=== PATIENT | female | born 1945 | race Two or more races ===

== ENCOUNTER 2020-06-15 22:30 | Inpatient (IN) | payer OTHER, MEDICAID ==
[~2020-06-15] VITALS: Ht 165.1 cm; Wt 122.0 kg
[~2020-06-15 22:30] MED LIST: ALBUAER3 IN; ASCO500T11 PO; B-CO1TAB33 PO; CAR3125T PO; CHOL20007 PO; FLUT250M2 INH; FURO1TAB32 PO; GABA300C10 PO; INSLANTI SC; INSLISPI SC; LEVO150T10 PO; METO5TAB56 PO; NIFE1TAB30 PO; NITR0.4S29 SL; OMEG100078 PO; SIMV-13 PO; SODB50I PO; TRAM50TA2 PO
[2020-06-15] MEDS ORDERED: PIPERACILLIN-TAZOB 3.375GM 100 ML IV ONE (23:00)
[2020-06-15] MEDS ORDERED: VANCOMYCIN 1GM/250ML 250 ML IV ONE (23:00)
[2020-06-15] MEDS ORDERED: SODIUM CHLORIDE 0.9% 1,000 ML IV ONE (23:00)
[2020-06-15 23:09] LABS: Basophils # (auto) 0.1 10 ^3/uL (0-0.2); Eosinophils # (auto) 0 10 ^3/uL (0-0.8); Hemoglobin 9.2 g/dL (12.2-16.2); Lymphocytes # (auto) 0.6 10 ^3/uL (0.4-5.4); Neutrophils # (auto) 5.9 10 ^3/uL (1.6-8.6); Red Blood Cells 2.58 10^6/uL (4.0-5.20); White Blood Cell 7.2 10^3/uL (4.4-10.8)
[2020-06-15 23:11] LABS: Basophils % (auto) 0.9 % (0.0-2.0); Eosinophils % (auto) 0.4 % (0.0-7.0); Hematocrit 28.1 % (36.0-46.0); Mean Corpuscular Hemoglobin 35.6 pg (28.0-32.0); Mean Corpuscular Hgb Conc. 32.7 g/dL (32.0-36.0); Mean Corpuscular Volume 108.9 fL (80.0-100.0); Monocytes # (auto) 0.5 10 ^3/uL (0-1.3); Monocytes % (auto) 7.4 % (0.0-12.0); Neutrophils % (auto) 82.3 % (37.0-80.0); Nucleated Red Blood Cells % 0.1 %; Platelet Count (auto) 123 10^3/uL (140-450); Red Cell Distribution Width 17.9 % (11.8-14.3)
[2020-06-15 23:25] LABS: INR 2.3 (0.9-1.15); Partial Thromboplastin Time 45.6 sec (23.0-31.2)
[2020-06-15 23:27] LABS: Alanine Aminotransferase 19 U/L (13-56); Anion Gap 9 (5-15); Aspartate Aminotransferase 27 U/L (15-37); Blood Alcohol < 3.0 mg/dL (0-5); Blood Urea Nitrogen 10 mg/dL (7-18); Calcium 8.2 mg/dL (8.5-10.1); Carbon Dioxide 25 mmol/L (21-32); Chloride 103 mmol/L (98-107); GFR African American 24 mL/min; GFR Non-African American 20 mL/min; Glucose 137 mg/dL (74-106); Magnesium 1.7 mg/dL (1.6-2.6); Potassium 3.5 mmol/L (3.5-5.1); Sodium 137 mmol/L (136-145)
[2020-06-15 23:29] LABS: Lactic Acid w/Reflex 2.7 mmol/L (0.4-2.0)
[2020-06-15 23:32] LABS: Alkaline Phosphatase 188 U/L (45-117); Bilirubin, Total 1.4 mg/dL (0.2-1.0); Total Protein 6.2 g/dL (6.4-8.2)
[2020-06-15] MEDS ORDERED: MIDAZOLAM DRIP 50 mg/50mL 50 ML IV ONE (23:42)
[2020-06-16] VITALS (66 sets, daily range): BP systolic 101–131; BP diastolic 45–63
[2020-06-16] MEDS ORDERED: MORPHINE SULF INJ 2 MG/ML SYRINGE 1ML IV PRN (02:00)
[2020-06-16] MEDS ORDERED: VANCOMYCIN PER PHARMACY 0 MG IV SCH (02:00)
[2020-06-16] MEDS ORDERED: NITROGLYCERIN 0.4 MG SL TAB SL PRN (02:00)
[2020-06-16] MEDS ORDERED: LACTULOSE 20Gm/30ML SOLN PO ONE ×2 (02:00→02:45)
[2020-06-16] MEDS ORDERED: SEVE800T8 PO (03:46)
[2020-06-16] MEDS ORDERED: APIX2.5T PO (03:46)
[2020-06-16] MEDS ORDERED: FUROSEMIDE 40 MG/4 ML VIAL IV SCH (06:00)
[2020-06-16] MEDS: ALBUMIN 25% 100 ML IV SCH ×3 (06:35→22:00)
[2020-06-16] MEDS: ALBUTEROL SULF 2.5 MG/0.5ML(0.5%) NEB SOLN NEB SCH ×3 (07:00→18:10)
[2020-06-16] MEDS: IPRATROPIUM BROM 0.5 MG/2.5ML INH SOL NEB SCH ×3 (07:00→18:10)
[2020-06-16 07:18] LABS: Basophils # (auto) 0 10 ^3/uL (0-0.2); Basophils % (auto) 0.4 % (0.0-2.0); Eosinophils # (auto) 0 10 ^3/uL (0-0.8); Monocytes # (auto) 0.7 10 ^3/uL (0-1.3); Red Cell Distribution Width 17.3 % (11.8-14.3)
[2020-06-16 07:20] LABS: Eosinophils % (auto) 0.1 % (0.0-7.0); Hemoglobin 9.4 g/dL (12.2-16.2); Lymphocytes # (auto) 0.8 10 ^3/uL (0.4-5.4); Mean Corpuscular Hemoglobin 35.8 pg (28.0-32.0); Mean Corpuscular Hgb Conc. 33.8 g/dL (32.0-36.0); Mean Corpuscular Volume 105.9 fL (80.0-100.0); Monocytes % (auto) 6.7 % (0.0-12.0); Neutrophils # (auto) 8.8 10 ^3/uL (1.6-8.6); Neutrophils % (auto) 84.8 % (37.0-80.0); Nucleated Red Blood Cells % 0.2 %; Platelet Count (auto) 140 10^3/uL (140-450); Red Blood Cells 2.64 10^6/uL (4.0-5.20); White Blood Cell 10.4 10^3/uL (4.4-10.8)
[2020-06-16 07:31] LABS: Potassium 3.4 mmol/L (3.5-5.1)
[2020-06-16 07:49] LABS: BUN/Creatinine Ratio 4.5; Bilirubin, Total 2.2 mg/dL (0.2-1.0); Calcium 8.6 mg/dL (8.5-10.1); Total Protein 6.1 g/dL (6.4-8.2)
[2020-06-16] MEDS: PIPERACILLIN-TAZOB 2.25GM 50 ML IV SCH ×3 (09:55→19:49)
[2020-06-16] MEDS ORDERED: PIPERACILLIN-TAZOB 2.25GM 50 ML IV SCH (10:00)
[2020-06-16] MEDS ORDERED: DEXTROSE (50%) 50ML SYRG IV PRN (10:30)
[2020-06-16] MEDS: ACCU-CHEK COMFORT CURVE STRIP VI SCH ×2 (12:00→18:20)
[2020-06-16] MEDS: InsuLIN REG 1unit/0.01ml Soln (100units/ml) SC SCH ×2 (12:00→18:21)
[2020-06-16] MEDS ORDERED: DOPamine 1600mCg/ml 400MG/250ml NSorD5 KIT/BAG IV ONE (13:23)
[2020-06-16] MEDS ORDERED: EPINEPHrine HCL 1 MG/10 ML SYRG IV ONE (13:23)
[2020-06-16] MEDS ORDERED: CALCIUM CHLOR(10%) 100MG/ML 10ML SYRINGE IV ONE (13:23)
[2020-06-16] MEDS: fentaNYL Drip 2500mCg/250mlNS 250 ML IV SCH (13:29)
[2020-06-16] MEDS: MIDAZOLAM DRIP 50 mg/50mL 50 ML IV SCH ×3 (13:30→23:40)
[2020-06-16] MEDS: DOPamine 1600MCG/ML D5W 250 ML IV SCH ×3 (13:30→23:40)
[2020-06-16 14:08] LABS: Alcohol, Urine < 3.0 mg/dL (0-10); Amphetamine Screen, Urine NEGATIVE (NEGATIVE); Barbiturate Scree,Urine NEGATIVE (NEGATIVE); Benzodiazephine Screen, Urine POSITIVE (NEGATIVE); Cannabinoid Screen, Urine NEGATIVE (NEGATIVE); Cocaine Screen, Urine NEGATIVE (NEGATIVE); Opiate Scree,Urine NEGATIVE (NEGATIVE); Phencyclidine Screen, Urine NEGATIVE (NEGATIVE)
[2020-06-16 14:27] LABS: Urine Bacteria FEW /hpf (None Seen); Urine Blood 3+ /uL (Negative); Urine Specific Gravity 1.008 (1.001-1.035); Urine WBC 120 /hpf (0 - 5)
[2020-06-17] VITALS (94 sets, daily range): BP systolic 73–130; BP diastolic 33–71
[2020-06-17] MEDS: ALBUTEROL SULF 2.5 MG/0.5ML(0.5%) NEB SOLN NEB SCH ×4 (00:01→18:36)
[2020-06-17] MEDS: IPRATROPIUM BROM 0.5 MG/2.5ML INH SOL NEB SCH ×4 (00:01→18:37)
[2020-06-17] MEDS: PIPERACILLIN-TAZOB 2.25GM 50 ML IV SCH ×4 (02:00→21:55)
[2020-06-17 04:53] LABS: Basophils # (auto) 0 10 ^3/uL (0-0.2); Hemoglobin 8.8 g/dL (12.2-16.2); Monocytes # (auto) 0.4 10 ^3/uL (0-1.3); Nucleated Red Blood Cells % 0.2 %
[2020-06-17 04:55] LABS: Basophils % (auto) 0.3 % (0.0-2.0); Eosinophils # (auto) 0.1 10 ^3/uL (0-0.8); Eosinophils % (auto) 0.9 % (0.0-7.0); Hematocrit 25.9 % (36.0-46.0); Lymphocytes % (auto) 10.3 % (10.0-50.0); Mean Corpuscular Hemoglobin 35.7 pg (28.0-32.0); Mean Corpuscular Hgb Conc. 33.8 g/dL (32.0-36.0); Mean Corpuscular Volume 105.5 fL (80.0-100.0); Monocytes % (auto) 4.4 % (0.0-12.0); Neutrophils # (auto) 7.9 10 ^3/uL (1.6-8.6); Neutrophils % (auto) 84.1 % (37.0-80.0); Platelet Count (auto) 126 10^3/uL (140-450); Red Blood Cells 2.46 10^6/uL (4.0-5.20); White Blood Cell 9.4 10^3/uL (4.4-10.8)
[2020-06-17 05:20] LABS: Potassium 3.4 mmol/L (3.5-5.1)
[2020-06-17 05:30] LABS: Albumin 2.5 g/dL (3.4-5.0); BUN/Creatinine Ratio 5.3; Bilirubin, Total 2.5 mg/dL (0.2-1.0); Total Protein 6.2 g/dL (6.4-8.2)
[2020-06-17] MEDS: ACCU-CHEK COMFORT CURVE STRIP VI SCH ×4 (05:33→17:54)
[2020-06-17] MEDS: InsuLIN REG 1unit/0.01ml Soln (100units/ml) SC SCH ×4 (05:33→17:55)
[2020-06-17] MEDS ORDERED: VANCOMYCIN 1GM/250ML 250 ML IV SCH (06:00)
[2020-06-17] MEDS ORDERED: SODIUM CHL 0.9% 1000 ML BAG XX ONE (07:00)
[2020-06-17] MEDS: MIDAZOLAM DRIP 50 mg/50mL 50 ML IV SCH (08:38)
[2020-06-17] MEDS: DOPamine 1600MCG/ML D5W 250 ML IV SCH (09:51)
[2020-06-17] MEDS: fentaNYL Drip 2500mCg/250mlNS 250 ML IV SCH (10:30)
[2020-06-17] MEDS: FUROSEMIDE 40 MG/4 ML VIAL IV SCH (18:18)
[2020-06-17] MEDS ORDERED: EPOETIN ALFA 10,000 UNIT/1 ML VIAL SC ONE (21:00)
[2020-06-18] VITALS (70 sets, daily range): BP systolic 77–136; BP diastolic 30–78
[2020-06-18] MEDS: IPRATROPIUM BROM 0.5 MG/2.5ML INH SOL NEB SCH ×4 (00:14→18:40)
[2020-06-18] MEDS: ALBUTEROL SULF 2.5 MG/0.5ML(0.5%) NEB SOLN NEB SCH ×4 (00:14→18:40)
[2020-06-18] MEDS: ACCU-CHEK COMFORT CURVE STRIP VI SCH ×5 (00:14→23:28)
[2020-06-18] MEDS: InsuLIN REG 1unit/0.01ml Soln (100units/ml) SC SCH ×5 (00:26→23:27)
[2020-06-18] MEDS: DOPamine 1600MCG/ML D5W 250 ML IV SCH ×2 (04:35→16:55)
[2020-06-18 05:20] LABS: Basophils # (auto) 0.1 10 ^3/uL (0-0.2); Eosinophils # (auto) 0.3 10 ^3/uL (0-0.8); Mean Corpuscular Hemoglobin 35.6 pg (28.0-32.0); Mean Corpuscular Hgb Conc. 34.1 g/dL (32.0-36.0); Mean Corpuscular Volume 104.5 fL (80.0-100.0); Monocytes # (auto) 0.3 10 ^3/uL (0-1.3); Monocytes % (auto) 3.8 % (0.0-12.0); Nucleated Red Blood Cells % 0.1 %
[2020-06-18 05:23] LABS: Eosinophils % (auto) 3.9 % (0.0-7.0); Hematocrit 25.9 % (36.0-46.0); Hemoglobin 8.8 g/dL (12.2-16.2); Lymphocytes # (auto) 0.8 10 ^3/uL (0.4-5.4); Neutrophils # (auto) 5.8 10 ^3/uL (1.6-8.6); Neutrophils % (auto) 80.3 % (37.0-80.0); Platelet Count (auto) 109 10^3/uL (140-450); Red Blood Cells 2.48 10^6/uL (4.0-5.20); Red Cell Distribution Width 17.5 % (11.8-14.3); White Blood Cell 7.3 10^3/uL (4.4-10.8)
[2020-06-18] MEDS: FUROSEMIDE 40 MG/4 ML VIAL IV SCH ×2 (06:15→18:00)
[2020-06-18] MEDS: PIPERACILLIN-TAZOB 2.25GM 50 ML IV SCH ×3 (06:15→21:57)
[2020-06-18 09:46] LABS: Calcium 8.6 mg/dL (8.5-10.1); Potassium 3.5 mmol/L (3.5-5.1)
[2020-06-18 09:50] LABS: BUN/Creatinine Ratio 5.4; Bilirubin, Total 2.3 mg/dL (0.2-1.0); Total Protein 5.6 g/dL (6.4-8.2)
[2020-06-18] MEDS: fentaNYL Drip 2500mCg/250mlNS 250 ML IV SCH (10:30)
[2020-06-18] MEDS: NOREPINEPHRINE BITARTRATE 32 MG in SODIUM CHL 0.9% 218 ML IV SCH (13:03)
[2020-06-18] MEDS ORDERED: PHENYLEPHRINE IV 250 ML IV SCH (13:15)
[2020-06-18] MEDS: ALBUMIN 25% 100 ML IV SCH ×2 (14:50→21:56)
[2020-06-18] MEDS: PHENYLEPHRINE INJ 80 MG in SODIUM CHL 0.9% 242 ML IV SCH ×2 (17:00→23:54)
[2020-06-18] MEDS: MIDODRINE HCL 10 MG TAB PO SCH (18:08)
[2020-06-19] VITALS (90 sets, daily range): BP systolic 79–130; BP diastolic 32–97
[2020-06-19] MEDS: MIDAZOLAM DRIP 50 mg/50mL 50 ML IV SCH (01:00)
[2020-06-19] MEDS: ALBUTEROL SULF 2.5 MG/0.5ML(0.5%) NEB SOLN NEB SCH ×4 (01:36→18:36)
[2020-06-19] MEDS: IPRATROPIUM BROM 0.5 MG/2.5ML INH SOL NEB SCH ×4 (01:36→18:36)
[2020-06-19 05:17] LABS: Basophils # (auto) 0 10 ^3/uL (0-0.2); Basophils % (auto) 0.6 % (0.0-2.0); Eosinophils # (auto) 0.3 10 ^3/uL (0-0.8); Hemoglobin 8.3 g/dL (12.2-16.2); Monocytes # (auto) 0.4 10 ^3/uL (0-1.3)
[2020-06-19 05:19] LABS: Eosinophils % (auto) 3.9 % (0.0-7.0); Hematocrit 24.3 % (36.0-46.0); Lymphocytes % (auto) 12.5 % (10.0-50.0); Mean Corpuscular Hemoglobin 36.1 pg (28.0-32.0); Mean Corpuscular Hgb Conc. 34.2 g/dL (32.0-36.0); Mean Corpuscular Volume 105.6 fL (80.0-100.0); Monocytes % (auto) 5.1 % (0.0-12.0); Neutrophils # (auto) 6.1 10 ^3/uL (1.6-8.6); Neutrophils % (auto) 77.9 % (37.0-80.0); Nucleated Red Blood Cells % 0.3 %; Platelet Count (auto) 94 10^3/uL (140-450); Red Cell Distribution Width 17.7 % (11.8-14.3); White Blood Cell 7.8 10^3/uL (4.4-10.8)
[2020-06-19 05:35] LABS: Potassium 3.9 mmol/L (3.5-5.1)
[2020-06-19 05:39] LABS: Albumin 2.4 g/dL (3.4-5.0); Bilirubin, Total 2.8 mg/dL (0.2-1.0); Calcium 8.9 mg/dL (8.5-10.1); Total Protein 5.5 g/dL (6.4-8.2)
[2020-06-19] MEDS: DOPamine 1600MCG/ML D5W 250 ML IV SCH (05:42)
[2020-06-19] MEDS: InsuLIN REG 1unit/0.01ml Soln (100units/ml) SC SCH ×3 (06:00→17:10)
[2020-06-19] MEDS: FUROSEMIDE 40 MG/4 ML VIAL IV SCH ×2 (06:18→17:21)
[2020-06-19] MEDS: PIPERACILLIN-TAZOB 2.25GM 50 ML IV SCH ×2 (06:18→16:18)
[2020-06-19] MEDS: ACCU-CHEK COMFORT CURVE STRIP VI SCH ×3 (06:19→17:10)
[2020-06-19] MEDS: MIDODRINE HCL 10 MG TAB PO SCH ×3 (06:19→17:29)
[2020-06-19] MEDS ORDERED: SODIUM CHL 0.9% 1000 ML BAG XX ONE (07:00)
[2020-06-19] MEDS: ALBUMIN 25% 100 ML IV SCH ×2 (09:16→13:07)
[2020-06-19] MEDS: PANTOPRAZOLE 40 MG/10 ML VIAL INJ IV SCH (10:00)
[2020-06-19] MEDS: fentaNYL Drip 2500mCg/250mlNS 250 ML IV SCH (10:30)
[2020-06-19] MEDS ORDERED: HEPARIN SODIUM (PORCINE) 5000 UNITS/ML 1ML VIAL IV ONE (13:00)
[2020-06-19] MEDS: NOREPINEPHRINE BITARTRATE 32 MG in SODIUM CHL 0.9% 218 ML IV SCH ×2 (17:11→18:30)
[2020-06-19] MEDS ORDERED: VANCOMYCIN 1GM/250ML 250 ML IV ONE (18:00)
[2020-06-19] MEDS ORDERED: EPOETIN ALFA 10,000 UNIT/1 ML VIAL SC ONE (21:00)
[2020-06-20] VITALS (110 sets, daily range): BP systolic 81–156; BP diastolic 37–87
[2020-06-20] MEDS: PIPERACILLIN-TAZOB 2.25GM 50 ML IV SCH ×3 (00:15→15:15)
[2020-06-20] MEDS: fentaNYL Drip 2500mCg/250mlNS 250 ML IV SCH ×2 (00:45→14:00)
[2020-06-20] MEDS: PHENYLEPHRINE INJ 80 MG in SODIUM CHL 0.9% 242 ML IV SCH (00:46)
[2020-06-20] MEDS: ALBUTEROL SULF 2.5 MG/0.5ML(0.5%) NEB SOLN NEB SCH ×3 (01:01→19:20)
[2020-06-20] MEDS: IPRATROPIUM BROM 0.5 MG/2.5ML INH SOL NEB SCH ×3 (01:01→19:21)
[2020-06-20] MEDS: DOPamine 1600MCG/ML D5W 250 ML IV SCH ×3 (03:04→10:00)
[2020-06-20] MEDS: InsuLIN REG 1unit/0.01ml Soln (100units/ml) SC SCH ×4 (06:00→17:17)
[2020-06-20] MEDS: MIDODRINE HCL 10 MG TAB PO SCH ×3 (06:00→17:17)
[2020-06-20 06:19] LABS: Basophils # (auto) 0 10 ^3/uL (0-0.2); Basophils % (auto) 0.2 % (0.0-2.0); Eosinophils # (auto) 0.3 10 ^3/uL (0-0.8); Eosinophils % (auto) 2.6 % (0.0-7.0); Hematocrit 25.5 % (36.0-46.0); Hemoglobin 8.6 g/dL (12.2-16.2); Mean Corpuscular Hemoglobin 35.4 pg (28.0-32.0); Mean Corpuscular Hgb Conc. 33.6 g/dL (32.0-36.0); Mean Corpuscular Volume 105.4 fL (80.0-100.0); Monocytes # (auto) 0.5 10 ^3/uL (0-1.3); Monocytes % (auto) 4.8 % (0.0-12.0); Neutrophils # (auto) 9.4 10 ^3/uL (1.6-8.6); Neutrophils % (auto) 83.4 % (37.0-80.0); Nucleated Red Blood Cells % 0.2 %; Platelet Count (auto) 101 10^3/uL (140-450); Red Blood Cells 2.42 10^6/uL (4.0-5.20); Red Cell Distribution Width 17.8 % (11.8-14.3); White Blood Cell 11.3 10^3/uL (4.4-10.8)
[2020-06-20] MEDS: MIDAZOLAM DRIP 50 mg/50mL 50 ML IV SCH ×2 (06:28→22:48)
[2020-06-20] MEDS: FUROSEMIDE 40 MG/4 ML VIAL IV SCH ×2 (06:29→17:17)
[2020-06-20] MEDS: ACCU-CHEK COMFORT CURVE STRIP VI SCH ×4 (06:30→17:18)
[2020-06-20 06:37] LABS: Potassium 3.6 mmol/L (3.5-5.1)
[2020-06-20 06:44] LABS: Albumin 2.7 g/dL (3.4-5.0); BUN/Creatinine Ratio 5.3; Bilirubin, Total 4.1 mg/dL (0.2-1.0); Calcium 8.6 mg/dL (8.5-10.1); Total Protein 5.8 g/dL (6.4-8.2)
[2020-06-20] MEDS: NOREPINEPHRINE BITARTRATE 32 MG in SODIUM CHL 0.9% 218 ML IV SCH (07:15)
[2020-06-20] MEDS: PANTOPRAZOLE 40 MG/10 ML VIAL INJ IV SCH (09:07)
[2020-06-20 11:05] LABS: INR 7.44 (0.9-1.15)
[2020-06-20] MEDS: LEVOTHYROXINE SODIUM 100 MCG/5 ML INJ IV SCH (11:27)
[2020-06-20] MEDS ORDERED: PHYTONADIONE (VIT K)10 MG/ML 1ML VIAL IV ONE (12:45)
[2020-06-20] MEDS ORDERED: phytonadione 5 MG in SODIUM CHL 0.9% 50 ML IV ONE (13:30)
[2020-06-21] VITALS (107 sets, daily range): BP systolic 51–158; BP diastolic 23–83
[2020-06-21] MEDS: ACCU-CHEK COMFORT CURVE STRIP VI SCH ×4 (00:22→17:19)
[2020-06-21] MEDS: PIPERACILLIN-TAZOB 2.25GM 50 ML IV SCH ×3 (00:24→15:56)
[2020-06-21] MEDS: ALBUTEROL SULF 2.5 MG/0.5ML(0.5%) NEB SOLN NEB SCH ×4 (00:39→17:43)
[2020-06-21] MEDS: IPRATROPIUM BROM 0.5 MG/2.5ML INH SOL NEB SCH ×4 (00:39→17:43)
[2020-06-21] MEDS: fentaNYL Drip 2500mCg/250mlNS 250 ML IV SCH ×2 (03:06→23:30)
[2020-06-21] MEDS: MIDODRINE HCL 10 MG TAB PO SCH ×3 (06:07→17:20)
[2020-06-21] MEDS: FUROSEMIDE 40 MG/4 ML VIAL IV SCH ×2 (06:07→17:20)
[2020-06-21] MEDS: InsuLIN REG 1unit/0.01ml Soln (100units/ml) SC SCH ×4 (06:07→17:19)
[2020-06-21 06:15] LABS: Basophils # (auto) 0.1 10 ^3/uL (0-0.2); Lymphocytes # (auto) 0.9 10 ^3/uL (0.4-5.4); Monocytes # (auto) 0.4 10 ^3/uL (0-1.3); White Blood Cell 7.8 10^3/uL (4.4-10.8)
[2020-06-21 06:18] LABS: Basophils % (auto) 0.9 % (0.0-2.0); Eosinophils # (auto) 0.4 10 ^3/uL (0-0.8); Eosinophils % (auto) 4.6 % (0.0-7.0); Hematocrit 26.3 % (36.0-46.0); Mean Corpuscular Hemoglobin 35.6 pg (28.0-32.0); Mean Corpuscular Hgb Conc. 34.3 g/dL (32.0-36.0); Mean Corpuscular Volume 103.8 fL (80.0-100.0); Monocytes % (auto) 4.9 % (0.0-12.0); Neutrophils % (auto) 77.6 % (37.0-80.0); Nucleated Red Blood Cells % 0.2 %; Platelet Count (auto) 95 10^3/uL (140-450); Red Blood Cells 2.53 10^6/uL (4.0-5.20); Red Cell Distribution Width 18.3 % (11.8-14.3)
[2020-06-21 06:28] LABS: INR 2.43 (0.9-1.15)
[2020-06-21 06:32] LABS: Albumin 2.2 g/dL (3.4-5.0); Calcium 8.6 mg/dL (8.5-10.1); Potassium 3.5 mmol/L (3.5-5.1)
[2020-06-21 06:37] LABS: BUN/Creatinine Ratio 5.5; Bilirubin, Total 4.4 mg/dL (0.2-1.0); Total Protein 5.3 g/dL (6.4-8.2)
[2020-06-21] MEDS ORDERED: phytonadione 2.5 MG in SODIUM CHL 0.9% 50 ML IV ONE (09:30)
[2020-06-21] MEDS: LEVOTHYROXINE SODIUM 100 MCG/5 ML INJ IV SCH (10:00)
[2020-06-21] MEDS: PANTOPRAZOLE 40 MG/10 ML VIAL INJ IV SCH (10:00)
[2020-06-21] MEDS: DOPamine 1600MCG/ML D5W 250 ML IV SCH (15:30)
[2020-06-21] MEDS: NOREPINEPHRINE BITARTRATE 32 MG in SODIUM CHL 0.9% 218 ML IV SCH (18:00)
[2020-06-21 19:58] LABS: Magnesium 1.6 mg/dL (1.6-2.6); Potassium 3.7 mmol/L (3.5-5.1)
[2020-06-21] MEDS ORDERED: MAGNESIUM SULFATE 1GM/100ML 100 ML IV ONE ×2 (20:30→20:37)
[2020-06-21] MEDS: MIDAZOLAM DRIP 50 mg/50mL 50 ML IV SCH (23:30)
[2020-06-22] VITALS (84 sets, daily range): BP systolic 83–128; BP diastolic 27–70
[2020-06-22] MEDS: ALBUTEROL SULF 2.5 MG/0.5ML(0.5%) NEB SOLN NEB SCH ×5 (00:15→19:23)
[2020-06-22] MEDS: IPRATROPIUM BROM 0.5 MG/2.5ML INH SOL NEB SCH ×5 (00:15→19:23)
[2020-06-22] MEDS: PIPERACILLIN-TAZOB 2.25GM 50 ML IV SCH ×3 (00:15→16:19)
[2020-06-22 00:44] LABS: Basophils # (auto) 0.2 10 ^3/uL (0-0.2); Basophils % (auto) 1.3 % (0.0-2.0); Eosinophils # (auto) 0.8 10 ^3/uL (0-0.8); Eosinophils % (auto) 5.4 % (0.0-7.0); Hematocrit 30.5 % (36.0-46.0); Lymphocytes # (auto) 4.3 10 ^3/uL (0.4-5.4); Lymphocytes % (auto) 28.7 % (10.0-50.0); Mean Corpuscular Hemoglobin 34.6 pg (28.0-32.0); Mean Corpuscular Hgb Conc. 32.8 g/dL (32.0-36.0); Mean Corpuscular Volume 105.3 fL (80.0-100.0); Monocytes # (auto) 0.8 10 ^3/uL (0-1.3); Monocytes % (auto) 5.3 % (0.0-12.0); Neutrophils # (auto) 8.8 10 ^3/uL (1.6-8.6); Neutrophils % (auto) 59.3 % (37.0-80.0); Nucleated Red Blood Cells % 0.9 %; Platelet Count (auto) 114 10^3/uL (140-450); Red Cell Distribution Width 18.5 % (11.8-14.3); White Blood Cell 14.8 10^3/uL (4.4-10.8)
[2020-06-22 00:56] LABS: INR 1.88 (0.9-1.15); Partial Thromboplastin Time 43.2 sec (23.0-31.2)
[2020-06-22 01:02] LABS: Albumin 2.2 g/dL (3.4-5.0); Calcium 9.6 mg/dL (8.5-10.1); Magnesium 2.1 mg/dL (1.6-2.6); Potassium 4.3 mmol/L (3.5-5.1)
[2020-06-22 01:05] LABS: BUN/Creatinine Ratio 5.5; Bilirubin, Total 4.7 mg/dL (0.2-1.0); Total Protein 5.4 g/dL (6.4-8.2)
[2020-06-22 04:43] LABS: INR 1.71 (0.9-1.15)
[2020-06-22 05:09] LABS: Albumin 2.2 g/dL (3.4-5.0); Calcium 9.6 mg/dL (8.5-10.1); Potassium 4.2 mmol/L (3.5-5.1)
[2020-06-22] MEDS: DOPamine 1600MCG/ML D5W 250 ML IV SCH ×3 (05:10→17:35)
[2020-06-22 05:13] LABS: BUN/Creatinine Ratio 5.8; Bilirubin, Total 5.8 mg/dL (0.2-1.0); Total Protein 5.9 g/dL (6.4-8.2)
[2020-06-22] MEDS: InsuLIN REG 1unit/0.01ml Soln (100units/ml) SC SCH ×4 (06:00→17:39)
[2020-06-22] MEDS: ACCU-CHEK COMFORT CURVE STRIP VI SCH ×4 (06:28→17:39)
[2020-06-22] MEDS: MIDODRINE HCL 10 MG TAB PO SCH ×3 (06:29→17:37)
[2020-06-22] MEDS: FUROSEMIDE 40 MG/4 ML VIAL IV SCH ×2 (06:30→17:36)
[2020-06-22 07:58] LABS: Basophils # (auto) 0.1 10 ^3/uL (0-0.2); Eosinophils # (auto) 0.7 10 ^3/uL (0-0.8); Hematocrit 27.4 % (36.0-46.0); Hemoglobin 9.4 g/dL (12.2-16.2)
[2020-06-22 08:01] LABS: Eosinophils % (auto) 6.2 % (0.0-7.0); Lymphocytes # (auto) 1.1 10 ^3/uL (0.4-5.4); Lymphocytes % (auto) 10.1 % (10.0-50.0); Mean Corpuscular Hemoglobin 35.6 pg (28.0-32.0); Mean Corpuscular Hgb Conc. 34.2 g/dL (32.0-36.0); Mean Corpuscular Volume 103.9 fL (80.0-100.0); Monocytes # (auto) 0.5 10 ^3/uL (0-1.3); Monocytes % (auto) 4.6 % (0.0-12.0); Neutrophils # (auto) 8.6 10 ^3/uL (1.6-8.6); Neutrophils % (auto) 78.1 % (37.0-80.0); Nucleated Red Blood Cells % 0.4 %; Platelet Count (auto) 104 10^3/uL (140-450); Red Blood Cells 2.64 10^6/uL (4.0-5.20); Red Cell Distribution Width 17.9 % (11.8-14.3)
[2020-06-22] MEDS: PANTOPRAZOLE 40 MG/10 ML VIAL INJ IV SCH (08:36)
[2020-06-22] MEDS: LEVOTHYROXINE SODIUM 100 MCG/5 ML INJ IV SCH (08:36)
[2020-06-22] MEDS: fentaNYL Drip 2500mCg/250mlNS 250 ML IV SCH (13:41)
[2020-06-22] MEDS ORDERED: VANCOMYCIN 1GM/250ML 250 ML IV ONE (16:00)
[2020-06-22] MEDS: NOREPINEPHRINE BITARTRATE 32 MG in SODIUM CHL 0.9% 218 ML IV SCH (17:36)
[2020-06-23] VITALS (91 sets, daily range): BP systolic 88–148; BP diastolic 18–69
[2020-06-23] MEDS: PIPERACILLIN-TAZOB 2.25GM 50 ML IV SCH ×3 (00:31→16:15)
[2020-06-23] MEDS: IPRATROPIUM BROM 0.5 MG/2.5ML INH SOL NEB SCH ×4 (00:32→18:00)
[2020-06-23] MEDS: ALBUTEROL SULF 2.5 MG/0.5ML(0.5%) NEB SOLN NEB SCH ×4 (00:32→18:30)
[2020-06-23] MEDS: MIDODRINE HCL 10 MG TAB PO SCH ×3 (05:56→18:03)
[2020-06-23] MEDS: FUROSEMIDE 40 MG/4 ML VIAL IV SCH ×2 (05:56→18:03)
[2020-06-23] MEDS: InsuLIN REG 1unit/0.01ml Soln (100units/ml) SC SCH ×3 (05:57→18:00)
[2020-06-23 06:13] LABS: Basophils # (auto) 0.1 10 ^3/uL (0-0.2); Basophils % (auto) 1.2 % (0.0-2.0); Eosinophils # (auto) 1.1 10 ^3/uL (0-0.8); Eosinophils % (auto) 10.9 % (0.0-7.0); Hematocrit 27.5 % (36.0-46.0); Hemoglobin 9.7 g/dL (12.2-16.2); Lymphocytes # (auto) 1.2 10 ^3/uL (0.4-5.4); Lymphocytes % (auto) 11.7 % (10.0-50.0); Mean Corpuscular Hgb Conc. 35.2 g/dL (32.0-36.0); Mean Corpuscular Volume 102.3 fL (80.0-100.0); Monocytes # (auto) 0.4 10 ^3/uL (0-1.3); Monocytes % (auto) 4.4 % (0.0-12.0); Neutrophils # (auto) 7.1 10 ^3/uL (1.6-8.6); Neutrophils % (auto) 71.8 % (37.0-80.0); Nucleated Red Blood Cells % 0.2 %; Platelet Count (auto) 98 10^3/uL (140-450); Red Blood Cells 2.69 10^6/uL (4.0-5.20); Red Cell Distribution Width 18.2 % (11.8-14.3); White Blood Cell 9.9 10^3/uL (4.4-10.8)
[2020-06-23 06:26] LABS: INR 1.79 (0.9-1.15)
[2020-06-23 06:39] LABS: Potassium 3.5 mmol/L (3.5-5.1)
[2020-06-23 06:45] LABS: Albumin 1.9 g/dL (3.4-5.0); BUN/Creatinine Ratio 6.1; Calcium 9.5 mg/dL (8.5-10.1); Total Protein 5.3 g/dL (6.4-8.2)
[2020-06-23] MEDS ORDERED: SODIUM CHL 0.9% 1000 ML BAG XX ONE (07:00)
[2020-06-23] MEDS: fentaNYL Drip 2500mCg/250mlNS 250 ML IV SCH (08:29)
[2020-06-23] MEDS ORDERED: phytonadione 2.5 MG in SODIUM CHL 0.9% 50 ML IV ONE (09:15)
[2020-06-23 10:20] LABS: INR 1.76 (0.9-1.15)
[2020-06-23] MEDS: PANTOPRAZOLE 40 MG/10 ML VIAL INJ IV SCH (10:30)
[2020-06-23] MEDS: LEVOTHYROXINE SODIUM 100 MCG/5 ML INJ IV SCH (10:31)
[2020-06-23] MEDS ORDERED: LIDOCAINE 2%HCL (LOCAL ANESTH.) INJ 20ML MDV ONE (11:44)
[2020-06-23] MEDS: DOPamine 1600MCG/ML D5W 250 ML IV SCH (11:58)
[2020-06-23] MEDS: ACCU-CHEK COMFORT CURVE STRIP VI SCH ×3 (12:00→18:00)
[2020-06-23] MEDS ORDERED: VANCOMYCIN 1GM/250ML 250 ML IV ONE (12:27)
[2020-06-23] MEDS ORDERED: VANCOMYCIN HCL 1000 MG VL ONE (12:27)
[2020-06-23] MEDS ORDERED: MIDAZOLAM HCL 1MG/1ML-2 ML VIAL ONE (12:48)
[2020-06-23] MEDS ORDERED: EPINEPHrine HCL 1 MG/10 ML SYRG IV ONE (13:23)
[2020-06-23] MEDS ORDERED: PHENYLEPHRINE IV 250 ML IV ONE (14:19)
[2020-06-23] MEDS: AMIODARONE HCL 200 MG TAB PO SCH (15:37)
[2020-06-23] MEDS: NOREPINEPHRINE BITARTRATE 32 MG in SODIUM CHL 0.9% 218 ML IV SCH (18:18)
[2020-06-23] MEDS ORDERED: EPOETIN ALFA 10,000 UNIT/1 ML VIAL SC ONE (21:00)
[2020-06-24] VITALS (100 sets, daily range): BP systolic 83–137; BP diastolic 18–93
[2020-06-24] MEDS: PIPERACILLIN-TAZOB 2.25GM 50 ML IV SCH ×3 (00:15→16:02)
[2020-06-24 04:12] LABS: Basophils # (auto) 0.1 10 ^3/uL (0-0.2); Basophils % (auto) 1.1 % (0.0-2.0); Hemoglobin 8.2 g/dL (12.2-16.2); Lymphocytes # (auto) 1.3 10 ^3/uL (0.4-5.4); Lymphocytes % (auto) 14.1 % (10.0-50.0); Monocytes # (auto) 0.6 10 ^3/uL (0-1.3); Neutrophils # (auto) 6.3 10 ^3/uL (1.6-8.6); White Blood Cell 9.4 10^3/uL (4.4-10.8)
[2020-06-24 04:14] LABS: Eosinophils % (auto) 11.1 % (0.0-7.0); Hematocrit 24.1 % (36.0-46.0); Mean Corpuscular Hemoglobin 35.4 pg (28.0-32.0); Mean Corpuscular Hgb Conc. 34.1 g/dL (32.0-36.0); Mean Corpuscular Volume 103.8 fL (80.0-100.0); Neutrophils % (auto) 67.7 % (37.0-80.0); Nucleated Red Blood Cells % 0.4 %; Platelet Count (auto) 96 10^3/uL (140-450); Red Blood Cells 2.32 10^6/uL (4.0-5.20); Red Cell Distribution Width 18.9 % (11.8-14.3)
[2020-06-24 04:31] LABS: % Iron Saturation 102.5 % (15-50)
[2020-06-24 04:34] LABS: Potassium 3.7 mmol/L (3.5-5.1)
[2020-06-24 04:41] LABS: BUN/Creatinine Ratio 6.1; Bilirubin, Total 5.2 mg/dL (0.2-1.0); Calcium 9.5 mg/dL (8.5-10.1); Total Protein 5.3 g/dL (6.4-8.2)
[2020-06-24 04:56] LABS: INR 1.59 (0.9-1.15)
[2020-06-24] MEDS: InsuLIN REG 1unit/0.01ml Soln (100units/ml) SC SCH ×4 (06:00→17:30)
[2020-06-24] MEDS: FUROSEMIDE 40 MG/4 ML VIAL IV SCH ×2 (06:00→17:30)
[2020-06-24] MEDS: ACCU-CHEK COMFORT CURVE STRIP VI SCH ×4 (06:00→17:31)
[2020-06-24] MEDS: MIDODRINE HCL 10 MG TAB PO SCH ×3 (06:00→17:30)
[2020-06-24] MEDS: IPRATROPIUM BROM 0.5 MG/2.5ML INH SOL NEB SCH ×4 (06:24→17:56)
[2020-06-24] MEDS: ALBUTEROL SULF 2.5 MG/0.5ML(0.5%) NEB SOLN NEB SCH ×4 (06:24→17:56)
[2020-06-24] MEDS ORDERED: SODIUM CHL 0.9% 1000 ML BAG XX ONE (07:00)
[2020-06-24] MEDS ORDERED: NOREPINEPHRINE BITARTRATE 16 MG in SODIUM CHL 0.9% 234 ML IV SCH (08:00)
[2020-06-24] MEDS: DOPamine 1600MCG/ML D5W 250 ML IV SCH ×2 (10:00→11:56)
[2020-06-24] MEDS: LEVOTHYROXINE SODIUM 100 MCG/5 ML INJ IV SCH (10:08)
[2020-06-24] MEDS: PANTOPRAZOLE 40 MG/10 ML VIAL INJ IV SCH (10:09)
[2020-06-24] MEDS: fentaNYL Drip 2500mCg/250mlNS 250 ML IV SCH (10:09)
[2020-06-24] MEDS: AMIODARONE HCL 200 MG TAB PO SCH (10:09)
[2020-06-24] MEDS: VASOPRESSIN 50 UNITS in D5W 5% 247.5 ML IV SCH (12:17)
[2020-06-24] MEDS: NOREPINEPHRINE BITARTRATE 32 MG in SODIUM CHL 0.9% 218 ML IV SCH (16:02)
[2020-06-24] MEDS ORDERED: EPOETIN ALFA 10,000 UNIT/1 ML VIAL SC ONE (21:00)
[2020-06-25] VITALS (104 sets, daily range): BP systolic 31–165; BP diastolic 18–118
[2020-06-25] MEDS: IPRATROPIUM BROM 0.5 MG/2.5ML INH SOL NEB SCH ×4 (00:04→18:34)
[2020-06-25] MEDS: ALBUTEROL SULF 2.5 MG/0.5ML(0.5%) NEB SOLN NEB SCH ×4 (00:04→18:34)
[2020-06-25] MEDS: PIPERACILLIN-TAZOB 2.25GM 50 ML IV SCH ×3 (00:15→15:39)
[2020-06-25] MEDS: DOPamine 1600MCG/ML D5W 250 ML IV SCH ×2 (02:19→15:06)
[2020-06-25 05:03] LABS: Potassium 3.9 mmol/L (3.5-5.1)
[2020-06-25 05:04] LABS: Basophils # (auto) 0.1 10 ^3/uL (0-0.2); Basophils % (auto) 0.8 % (0.0-2.0); Eosinophils % (auto) 9.9 % (0.0-7.0); Hematocrit 24.6 % (36.0-46.0); Hemoglobin 8.3 g/dL (12.2-16.2); Lymphocytes # (auto) 1.6 10 ^3/uL (0.4-5.4); Lymphocytes % (auto) 15.6 % (10.0-50.0); Mean Corpuscular Hemoglobin 35.6 pg (28.0-32.0); Mean Corpuscular Hgb Conc. 33.7 g/dL (32.0-36.0); Mean Corpuscular Volume 105.5 fL (80.0-100.0); Monocytes # (auto) 0.7 10 ^3/uL (0-1.3); Monocytes % (auto) 6.4 % (0.0-12.0); Neutrophils % (auto) 67.3 % (37.0-80.0); Nucleated Red Blood Cells % 0.2 %; Platelet Count (auto) 103 10^3/uL (140-450); Red Blood Cells 2.34 10^6/uL (4.0-5.20); White Blood Cell 10.4 10^3/uL (4.4-10.8)
[2020-06-25 05:05] LABS: Red Cell Distribution Width 18.9 % (11.8-14.3)
[2020-06-25 05:06] LABS: INR 1.76 (0.9-1.15)
[2020-06-25 05:13] LABS: BUN/Creatinine Ratio 5.4; Bilirubin, Total 5.1 mg/dL (0.2-1.0); Total Protein 5.5 g/dL (6.4-8.2)
[2020-06-25] MEDS: InsuLIN REG 1unit/0.01ml Soln (100units/ml) SC SCH ×4 (06:00→18:00)
[2020-06-25] MEDS: ACCU-CHEK COMFORT CURVE STRIP VI SCH ×4 (06:20→18:15)
[2020-06-25] MEDS: FUROSEMIDE 40 MG/4 ML VIAL IV SCH ×2 (06:20→18:16)
[2020-06-25] MEDS: MIDODRINE HCL 10 MG TAB PO SCH ×3 (06:20→18:15)
[2020-06-25] MEDS: VASOPRESSIN 50 UNITS in D5W 5% 247.5 ML IV SCH (08:30)
[2020-06-25] MEDS: LEVOTHYROXINE SODIUM 100 MCG/5 ML INJ IV SCH (10:03)
[2020-06-25] MEDS: PANTOPRAZOLE 40 MG/10 ML VIAL INJ IV SCH (10:03)
[2020-06-25] MEDS: AMIODARONE HCL 200 MG TAB PO SCH (10:04)
[2020-06-25] MEDS: fentaNYL Drip 2500mCg/250mlNS 250 ML IV SCH (10:30)
[2020-06-25] MEDS: NOREPINEPHRINE BITARTRATE 32 MG in SODIUM CHL 0.9% 218 ML IV SCH (10:57)
[2020-06-26] VITALS (72 sets, daily range): BP systolic 77–157; BP diastolic 13–102
[2020-06-26] MEDS: PIPERACILLIN-TAZOB 2.25GM 50 ML IV SCH ×3 (00:15→16:15)
[2020-06-26] MEDS: ALBUTEROL SULF 2.5 MG/0.5ML(0.5%) NEB SOLN NEB SCH ×4 (00:23→18:30)
[2020-06-26] MEDS: IPRATROPIUM BROM 0.5 MG/2.5ML INH SOL NEB SCH ×4 (00:23→18:30)
[2020-06-26] MEDS: DOPamine 1600MCG/ML D5W 250 ML IV SCH ×2 (03:53→16:40)
[2020-06-26] MEDS: ACCU-CHEK COMFORT CURVE STRIP VI SCH ×4 (05:59→18:06)
[2020-06-26] MEDS: FUROSEMIDE 40 MG/4 ML VIAL IV SCH ×3 (05:59→18:11)
[2020-06-26] MEDS: InsuLIN REG 1unit/0.01ml Soln (100units/ml) SC SCH ×4 (05:59→18:10)
[2020-06-26] MEDS: MIDODRINE HCL 10 MG TAB PO SCH ×3 (05:59→18:10)
[2020-06-26 06:01] LABS: Basophils # (auto) 0.1 10 ^3/uL (0-0.2); Eosinophils # (auto) 0.7 10 ^3/uL (0-0.8); Monocytes # (auto) 0.4 10 ^3/uL (0-1.3); Neutrophils # (auto) 5.5 10 ^3/uL (1.6-8.6)
[2020-06-26 06:04] LABS: Basophils % (auto) 0.9 % (0.0-2.0); Eosinophils % (auto) 8.4 % (0.0-7.0); Hematocrit 21.4 % (36.0-46.0); Hemoglobin 7.4 g/dL (12.2-16.2); Lymphocytes # (auto) 1.3 10 ^3/uL (0.4-5.4); Lymphocytes % (auto) 16.2 % (10.0-50.0); Mean Corpuscular Hemoglobin 36.3 pg (28.0-32.0); Mean Corpuscular Hgb Conc. 34.6 g/dL (32.0-36.0); Mean Corpuscular Volume 104.8 fL (80.0-100.0); Monocytes % (auto) 4.8 % (0.0-12.0); Neutrophils % (auto) 69.7 % (37.0-80.0); Nucleated Red Blood Cells % 0.2 %; Platelet Count (auto) 91 10^3/uL (140-450); Red Blood Cells 2.04 10^6/uL (4.0-5.20); Red Cell Distribution Width 20.2 % (11.8-14.3); White Blood Cell 7.9 10^3/uL (4.4-10.8)
[2020-06-26 06:15] LABS: INR 1.77 (0.9-1.15)
[2020-06-26 06:19] LABS: Albumin 1.7 g/dL (3.4-5.0); BUN/Creatinine Ratio 5.3; Calcium 9.4 mg/dL (8.5-10.1)
[2020-06-26 06:23] LABS: Bilirubin, Total 4.4 mg/dL (0.2-1.0); Total Protein 4.9 g/dL (6.4-8.2)
[2020-06-26] MEDS ORDERED: SODIUM CHL 0.9% 1000 ML BAG XX ONE (07:00)
[2020-06-26] MEDS: VASOPRESSIN 50 UNITS in D5W 5% 247.5 ML IV SCH (08:30)
[2020-06-26] MEDS: AMIODARONE HCL 200 MG TAB PO SCH (09:49)
[2020-06-26] MEDS: PANTOPRAZOLE 40 MG/10 ML VIAL INJ IV SCH (09:49)
[2020-06-26] MEDS: LEVOTHYROXINE SODIUM 100 MCG/5 ML INJ IV SCH (09:49)
[2020-06-26] MEDS ORDERED: CATHFLO ACTIVASE (ALTEPLASE) 2 MG VIAL IV ONE (10:00)
[2020-06-26] MEDS: fentaNYL Drip 2500mCg/250mlNS 250 ML IV SCH (10:30)
[2020-06-26] MEDS ORDERED: VANCOMYCIN 500 MG in D5W 5% 100 ML IV ONE (12:00)
[2020-06-26] MEDS: NOREPINEPHRINE BITARTRATE 32 MG in SODIUM CHL 0.9% 218 ML IV SCH ×2 (17:45→21:00)
[2020-06-26] MEDS ORDERED: EPOETIN ALFA 10,000 UNIT/1 ML VIAL SC ONE (21:00)
[2020-06-27] VITALS (86 sets, daily range): BP systolic 97–159; BP diastolic 11–89
[2020-06-27] MEDS: ALBUTEROL SULF 2.5 MG/0.5ML(0.5%) NEB SOLN NEB SCH ×4 (00:08→17:52)
[2020-06-27] MEDS: IPRATROPIUM BROM 0.5 MG/2.5ML INH SOL NEB SCH ×4 (00:08→17:53)
[2020-06-27] MEDS: PIPERACILLIN-TAZOB 2.25GM 50 ML IV SCH ×4 (00:21→23:51)
[2020-06-27] MEDS: ACCU-CHEK COMFORT CURVE STRIP VI SCH ×5 (00:21→23:51)
[2020-06-27] MEDS: DOPamine 1600MCG/ML D5W 250 ML IV SCH ×2 (05:06→18:14)
[2020-06-27] MEDS: InsuLIN REG 1unit/0.01ml Soln (100units/ml) SC SCH ×5 (05:38→23:50)
[2020-06-27] MEDS: MIDODRINE HCL 10 MG TAB PO SCH ×3 (06:00→17:26)
[2020-06-27] MEDS: FUROSEMIDE 40 MG/4 ML VIAL IV SCH ×2 (06:00→17:25)
[2020-06-27 08:12] LABS: Lymphocytes # (auto) 1.6 10 ^3/uL (0.4-5.4); Monocytes # (auto) 0.9 10 ^3/uL (0-1.3); Red Blood Cells 2.57 10^6/uL (4.0-5.20)
[2020-06-27 08:14] LABS: Basophils # (auto) 0.2 10 ^3/uL (0-0.2); Basophils % (auto) 1.5 % (0.0-2.0); Eosinophils # (auto) 1.1 10 ^3/uL (0-0.8); Eosinophils % (auto) 8.3 % (0.0-7.0); Hematocrit 27.3 % (36.0-46.0); Lymphocytes % (auto) 12.8 % (10.0-50.0); Mean Corpuscular Hgb Conc. 32.9 g/dL (32.0-36.0); Mean Corpuscular Volume 106.3 fL (80.0-100.0); Monocytes % (auto) 6.7 % (0.0-12.0); Neutrophils % (auto) 70.7 % (37.0-80.0); Nucleated Red Blood Cells % 0.1 %; Platelet Count (auto) 129 10^3/uL (140-450); White Blood Cell 12.8 10^3/uL (4.4-10.8)
[2020-06-27 08:28] LABS: Albumin 2.1 g/dL (3.4-5.0); BUN/Creatinine Ratio 4.9
[2020-06-27] MEDS: VASOPRESSIN 50 UNITS in D5W 5% 247.5 ML IV SCH ×2 (08:30→18:31)
[2020-06-27 08:31] LABS: Bilirubin, Total 5.7 mg/dL (0.2-1.0); Total Protein 6.1 g/dL (6.4-8.2)
[2020-06-27 08:37] LABS: INR 1.74 (0.9-1.15)
[2020-06-27 08:39] LABS: Red Cell Distribution Width 21.6 % (11.8-14.3)
[2020-06-27] MEDS: PANTOPRAZOLE 40 MG/10 ML VIAL INJ IV SCH (09:16)
[2020-06-27] MEDS: LEVOTHYROXINE SODIUM 100 MCG/5 ML INJ IV SCH (09:16)
[2020-06-27] MEDS: AMIODARONE HCL 200 MG TAB PO SCH (09:37)
[2020-06-27] MEDS: fentaNYL Drip 2500mCg/250mlNS 250 ML IV SCH (09:38)
[2020-06-27] MEDS: NOREPINEPHRINE BITARTRATE 32 MG in SODIUM CHL 0.9% 218 ML IV SCH ×2 (13:37→23:45)
[2020-06-28] VITALS (87 sets, daily range): BP systolic 99–137; BP diastolic 16–101
[2020-06-28] MEDS: ALBUTEROL SULF 2.5 MG/0.5ML(0.5%) NEB SOLN NEB SCH ×4 (00:09→17:49)
[2020-06-28] MEDS: IPRATROPIUM BROM 0.5 MG/2.5ML INH SOL NEB SCH ×3 (00:09→17:49)
[2020-06-28 05:36] LABS: BUN/Creatinine Ratio 5.1; Calcium 9.9 mg/dL (8.5-10.1)
[2020-06-28 05:39] LABS: Bilirubin, Total 5.6 mg/dL (0.2-1.0)
[2020-06-28] MEDS: ACCU-CHEK COMFORT CURVE STRIP VI SCH ×3 (05:50→17:13)
[2020-06-28] MEDS: MIDODRINE HCL 10 MG TAB PO SCH ×3 (05:50→17:35)
[2020-06-28] MEDS: InsuLIN REG 1unit/0.01ml Soln (100units/ml) SC SCH ×3 (05:50→17:13)
[2020-06-28] MEDS: FUROSEMIDE 40 MG/4 ML VIAL IV SCH ×2 (05:50→17:34)
[2020-06-28] MEDS: NOREPINEPHRINE BITARTRATE 32 MG in SODIUM CHL 0.9% 218 ML IV SCH (05:51)
[2020-06-28 05:56] LABS: Hematocrit 27.1 % (36.0-46.0); Hemoglobin 8.7 g/dL (12.2-16.2); Mean Corpuscular Volume 106.1 fL (80.0-100.0); Platelet Count (auto) 119 10^3/uL (140-450); Red Blood Cells 2.56 10^6/uL (4.0-5.20); White Blood Cell 13.4 10^3/uL (4.4-10.8)
[2020-06-28 06:00] LABS: Basophils % (manual) 0 (0.0-2.0); Blast Cells 0; Metamyelocytes % 0; Myelocytes % 0; Promyelocytes % 0; Reactive Lymphocytes 0; Red Cell Distribution Width 21.8 % (11.8-14.3)
[2020-06-28 07:53] LABS: Band Neutrophils % (manual) 3; Eosinophils % (manual) 5 (0-7); Lymphocytes % (manual) 13 (10.0-50.0); Monocytes % (manual) 4 (0-12)
[2020-06-28] MEDS: PIPERACILLIN-TAZOB 2.25GM 50 ML IV SCH ×2 (09:00→15:24)
[2020-06-28 09:16] LABS: INR 1.97 (0.9-1.15)
[2020-06-28] MEDS: LEVOTHYROXINE SODIUM 100 MCG/5 ML INJ IV SCH (09:38)
[2020-06-28] MEDS: fentaNYL Drip 2500mCg/250mlNS 250 ML IV SCH (09:38)
[2020-06-28] MEDS: PANTOPRAZOLE 40 MG/10 ML VIAL INJ IV SCH (09:38)
[2020-06-28] MEDS: DOPamine 1600MCG/ML D5W 250 ML IV SCH (09:38)
[2020-06-28] MEDS: AMIODARONE HCL 200 MG TAB PO SCH (09:38)
[2020-06-29] VITALS (91 sets, daily range): BP systolic 95–138; BP diastolic 17–80
[2020-06-29] MEDS: IPRATROPIUM BROM 0.5 MG/2.5ML INH SOL NEB SCH ×4 (00:01→18:54)
[2020-06-29] MEDS: ALBUTEROL SULF 2.5 MG/0.5ML(0.5%) NEB SOLN NEB SCH ×4 (00:01→18:54)
[2020-06-29] MEDS: InsuLIN REG 1unit/0.01ml Soln (100units/ml) SC SCH ×4 (00:12→17:48)
[2020-06-29] MEDS: PIPERACILLIN-TAZOB 2.25GM 50 ML IV SCH ×3 (00:12→16:15)
[2020-06-29] MEDS: ACCU-CHEK COMFORT CURVE STRIP VI SCH ×4 (00:12→17:45)
[2020-06-29] MEDS: DOPamine 1600MCG/ML D5W 250 ML IV SCH ×3 (08:02→21:22)
[2020-06-29] MEDS: FUROSEMIDE 40 MG/4 ML VIAL IV SCH ×2 (08:06→17:35)
[2020-06-29] MEDS: MIDODRINE HCL 10 MG TAB PO SCH ×3 (08:07→17:35)
[2020-06-29] MEDS: VASOPRESSIN 50 UNITS in D5W 5% 247.5 ML IV SCH (08:45)
[2020-06-29 09:52] LABS: Hemoglobin 8.9 g/dL (12.2-16.2); Platelet Count (auto) 155 10^3/uL (140-450)
[2020-06-29 09:54] LABS: Basophils # (auto) 0.1 10 ^3/uL (0-0.2); Basophils % (auto) 1.2 % (0.0-2.0); Eosinophils # (auto) 0.5 10 ^3/uL (0-0.8); Eosinophils % (auto) 4.5 % (0.0-7.0); Lymphocytes # (auto) 1.3 10 ^3/uL (0.4-5.4); Lymphocytes % (auto) 10.6 % (10.0-50.0); Mean Corpuscular Hemoglobin 35.4 pg (28.0-32.0); Mean Corpuscular Volume 107.3 fL (80.0-100.0); Monocytes # (auto) 0.7 10 ^3/uL (0-1.3); Monocytes % (auto) 5.5 % (0.0-12.0); Neutrophils # (auto) 9.6 10 ^3/uL (1.6-8.6); Neutrophils % (auto) 78.2 % (37.0-80.0); Nucleated Red Blood Cells % 0.3 %; Red Blood Cells 2.52 10^6/uL (4.0-5.20); White Blood Cell 12.2 10^3/uL (4.4-10.8)
[2020-06-29 10:08] LABS: Calcium 10.6 mg/dL (8.5-10.1); Potassium 4.3 mmol/L (3.5-5.1)
[2020-06-29 10:10] LABS: Red Cell Distribution Width 23.1 % (11.8-14.3)
[2020-06-29 10:12] LABS: Bilirubin, Total 6.4 mg/dL (0.2-1.0); Total Protein 6.4 g/dL (6.4-8.2)
[2020-06-29 10:14] LABS: INR 2.11 (0.9-1.15)
[2020-06-29] MEDS: fentaNYL Drip 2500mCg/250mlNS 250 ML IV SCH (10:30)
[2020-06-29] MEDS: PANTOPRAZOLE 40 MG/10 ML VIAL INJ IV SCH (10:54)
[2020-06-29] MEDS: LEVOTHYROXINE SODIUM 100 MCG/5 ML INJ IV SCH (10:54)
[2020-06-29] MEDS: AMIODARONE HCL 200 MG TAB PO SCH (10:54)
[2020-06-29] MEDS ORDERED: VANCOMYCIN 1GM/250ML 250 ML IV ONE ×2 (16:00→20:00)
[2020-06-29] MEDS: NOREPINEPHRINE BITARTRATE 32 MG in SODIUM CHL 0.9% 218 ML IV SCH (16:11)
[2020-06-29] MEDS ORDERED: ALBUMIN 25% 100 ML IV ONE (18:45)
[2020-06-30] VITALS (74 sets, daily range): BP systolic 96–138; BP diastolic 32–77
[2020-06-30] MEDS: ALBUTEROL SULF 2.5 MG/0.5ML(0.5%) NEB SOLN NEB SCH ×3 (00:15→12:17)
[2020-06-30] MEDS: IPRATROPIUM BROM 0.5 MG/2.5ML INH SOL NEB SCH ×3 (00:15→12:17)
[2020-06-30] MEDS: PIPERACILLIN-TAZOB 2.25GM 50 ML IV SCH ×2 (00:25→08:30)
[2020-06-30] MEDS: ACCU-CHEK COMFORT CURVE STRIP VI SCH ×3 (00:25→12:00)
[2020-06-30 05:03] LABS: Basophils # (auto) 0.4 10 ^3/uL (0-0.2); Hemoglobin 8.6 g/dL (12.2-16.2); Mean Corpuscular Hemoglobin 35.3 pg (28.0-32.0); Monocytes # (auto) 0.6 10 ^3/uL (0-1.3)
[2020-06-30 05:06] LABS: Basophils % (auto) 3.4 % (0.0-2.0); Eosinophils % (auto) 8.2 % (0.0-7.0); Hematocrit 25.9 % (36.0-46.0); Lymphocytes # (auto) 1.4 10 ^3/uL (0.4-5.4); Lymphocytes % (auto) 11.7 % (10.0-50.0); Mean Corpuscular Hgb Conc. 33.3 g/dL (32.0-36.0); Mean Corpuscular Volume 106.1 fL (80.0-100.0); Monocytes % (auto) 5.5 % (0.0-12.0); Neutrophils # (auto) 8.4 10 ^3/uL (1.6-8.6); Neutrophils % (auto) 71.2 % (37.0-80.0); Nucleated Red Blood Cells % 0.2 %; Platelet Count (auto) 143 10^3/uL (140-450); Red Blood Cells 2.44 10^6/uL (4.0-5.20); White Blood Cell 11.9 10^3/uL (4.4-10.8)
[2020-06-30 05:12] LABS: Red Cell Distribution Width 23.5 % (11.8-14.3)
[2020-06-30 05:19] LABS: INR 2.17 (0.9-1.15)
[2020-06-30 05:20] LABS: Albumin 2.3 g/dL (3.4-5.0); Calcium 10.2 mg/dL (8.5-10.1)
[2020-06-30 05:24] LABS: BUN/Creatinine Ratio 5.2; Bilirubin, Total 7.2 mg/dL (0.2-1.0); Total Protein 6.6 g/dL (6.4-8.2)
[2020-06-30] MEDS: InsuLIN REG 1unit/0.01ml Soln (100units/ml) SC SCH ×3 (06:00→12:00)
[2020-06-30] MEDS: FUROSEMIDE 40 MG/4 ML VIAL IV SCH (06:18)
[2020-06-30] MEDS: MIDODRINE HCL 10 MG TAB PO SCH ×2 (06:18→13:21)
[2020-06-30] MEDS: VASOPRESSIN 50 UNITS in D5W 5% 247.5 ML IV SCH (08:30)
[2020-06-30] MEDS: DOPamine 1600MCG/ML D5W 250 ML IV SCH (10:09)
[2020-06-30] MEDS: fentaNYL Drip 2500mCg/250mlNS 250 ML IV SCH (10:30)
[2020-06-30] MEDS: PANTOPRAZOLE 40 MG/10 ML VIAL INJ IV SCH (10:52)
[2020-06-30] MEDS: LEVOTHYROXINE SODIUM 100 MCG/5 ML INJ IV SCH (10:52)
[2020-06-30] MEDS: AMIODARONE HCL 200 MG TAB PO SCH (10:52)
[2020-06-30] MEDS: NOREPINEPHRINE BITARTRATE 32 MG in SODIUM CHL 0.9% 218 ML IV SCH (18:05)
[2020-07-01] MEDS ORDERED: SODIUM CHL 0.9% 1000 ML BAG XX ONE (07:00)
[2020-07-01] MEDS ORDERED: EPOETIN ALFA 10,000 UNIT/1 ML VIAL SC ONE (21:00)
== END 2020-06-30 22:08 | disposition hospice, home (50) | DRG 853 ==
LOC: ER 22:30 → EDBD 22:30 → TELE 22:31 → ICU WEST 06-16 08:42
PROVIDERS: ADMIT Internal Medicine; ATTEND Internal Medicine
PROC: 5A1955Z Respiratory Ventilation, Greater than 96 Consecutive Hours (ICD-10-PCS; 2020-06-15)
PROC: 0BH17EZ Insertion of Endotracheal Airway into Trachea, Via Natural or Artificial Opening (ICD-10-PCS; 2020-06-15)
PROC: 5A12012 Performance of Cardiac Output, Single, Manual (ICD-10-PCS; 2020-06-15)
PROC: 5A1D70Z Performance of Urinary Filtration, Intermittent, Less than 6 Hours Per Day (ICD-10-PCS; 2020-06-17)
PROC: 5A1D70Z Performance of Urinary Filtration, Intermittent, Less than 6 Hours Per Day (ICD-10-PCS; 2020-06-19)
PROC: 0JH608Z Insertion of Defibrillator Generator into Chest Subcutaneous Tissue and Fascia, Open Approach (ICD-10-PCS; principal; 2020-06-23)
PROC: 02H63KZ Insertion of Defibrillator Lead into Right Atrium, Percutaneous Approach (ICD-10-PCS; 2020-06-23)
PROC: 02HK3KZ Insertion of Defibrillator Lead into Right Ventricle, Percutaneous Approach (ICD-10-PCS; 2020-06-23)
PROC: 5A2204Z Restoration of Cardiac Rhythm, Single (ICD-10-PCS; 2020-06-23)
PROC: 30233K1 Transfusion of Nonautologous Frozen Plasma into Peripheral Vein, Percutaneous Approach (ICD-10-PCS; 2020-06-23)
PROC: 5A1D70Z Performance of Urinary Filtration, Intermittent, Less than 6 Hours Per Day (ICD-10-PCS; 2020-06-24)
PROC: 5A1D70Z Performance of Urinary Filtration, Intermittent, Less than 6 Hours Per Day (ICD-10-PCS; 2020-06-26)
PROC: 5A1D70Z Performance of Urinary Filtration, Intermittent, Less than 6 Hours Per Day (ICD-10-PCS; 2020-06-29)
DX: A41.9 Sepsis, unspecified organism (principal); I46.9 Cardiac arrest, cause unspecified; I21.4 Non-ST elevation (NSTEMI) myocardial infarction; G93.41 Metabolic encephalopathy; N18.6 End stage renal disease; J18.9 Pneumonia, unspecified organism; J96.01 Acute respiratory failure with hypoxia; E87.2 Acidosis; G93.1 Anoxic brain damage, not elsewhere classified; J44.0 Chronic obstructive pulmonary disease with (acute) lower respiratory infection; I13.2 Hypertensive heart and chronic kidney disease with heart failure and with stage 5 chronic kidney disease, or end stage renal disease; I50.9 Heart failure, unspecified; Z66 Do not resuscitate; Z51.5 Encounter for palliative care; Z20.822 Contact with and (suspected) exposure to COVID-19; M79.3 Panniculitis, unspecified; Z99.2 Dependence on renal dialysis; E03.9 Hypothyroidism, unspecified; I27.20 Pulmonary hypertension, unspecified; I49.9 Cardiac arrhythmia, unspecified; B95.7 Other staphylococcus as the cause of diseases classified elsewhere; K72.90 Hepatic failure, unspecified without coma; I48.91 Unspecified atrial fibrillation; D63.1 Anemia in chronic kidney disease; H57.02 Anisocoria; E66.01 Morbid (severe) obesity due to excess calories; Z68.39 Body mass index [BMI] 39.0-39.9, adult; Z79.84 Long term (current) use of oral hypoglycemic drugs; Z79.899 Other long term (current) drug therapy; Z88.8 Allergy status to other drugs, medicaments and biological substances
CPT/HCPCS: 36415; 36600; 70450; 71045; 76700; 76705; 80053; 80202; 80307; 80320; 81001; 82140; 82607; 82728; 82746; 82805; 82962; 83540; 83550; 83605; 83735; 83880; 84132; 84436; 84443; 84480; 84484; 85007; 85025; 85027; 85379; 85610; 85730; 86850; 86900; 86901; 87040; 87070; 87076; 87077; 87081; 87086; 87186; 87205; 87340; 87426; 90935; 93005; 93306; 93971; 94002; 94003; 94640; 95819; 96361; 96365; 96367; 99152; 99153; 99291; A4618; C9113; G0378; J0885; J1642; J1815; J2250; J2543; J3430; J3490; J7060; P9047